=== PATIENT | male | born 1955 | race Caucasian/White ===

== ENCOUNTER 2023-12-28 14:28 | Inpatient (IN) | payer OTHER, MEDICAID, MEDICARE ==
[~2023-12-28] VITALS: Ht 152.4 cm; Wt 79.1 kg
[2023-12-28 15:49] LABS: BASOPHILS % 1.1 % (0.0-2.0); DIFFERENTIAL COMMENT 0; EOSINOPHILS % 0.6 % (0.0-5.0); HEMATOCRIT. 46.1 % (42.0-52.0); HEMOGLOBIN. 15.3 g/dL (14.0-18.0); LYMPHOCYTES % 19.4 % (20.0-50.0); MEAN CORPUSCULAR HEMOGLOBIN 26.6 pg (28.0-32.0); MEAN CORPUSCULAR HGB CONC 33.3 g/dL (31.0-37.0); MEAN PLATELET VOLUME 9.1 fl (7.4-10.4); MONOCYTES % 8.6 % (2.0-8.0); NEUTROPHILS % 70.3 % (40.0-76.0); PLATELET 264 x1000/uL (130-400); RED BLOOD CELL COUNT 5.76 mill/uL (4.7-6.1); RED CELL DISTRIBUTION WIDTH 18.9 % (11.6-14.6); WHITE BLOOD COUNT 14.2 x1000/uL (4.5-11.0)
[2023-12-28 15:54] LABS: CHLORIDE 107 mEq/L (98-107); POTASSIUM 3.6 mEq/L (3.5-5.1); SODIUM 139 mEq/L (136-145)
[2023-12-28 15:55] LABS: CARBON DIOXIDE 22 mEq/L (21-32)
[2023-12-28 15:56] LABS: CALCIUM 9.7 mg/dL (8.7-10.4)
[2023-12-28 16:01] LABS: CREATININE 0.8 mg/dL (0.6-1.3); GLUCOSE 112 mg/dL (70-105); UREA NITROGEN BLOOD 14 mg/dL (9-23)
[2023-12-28 16:08] LABS: TROPONIN I HIGH SENSITIVITY < 4 ng/L (3.0-53)
[2023-12-28 17:43] LABS: TROPONIN I HIGH SENSITIVITY < 4 ng/L (3.0-53)
[2023-12-28 18:46] LABS: PROTHROMBIN TIME 11.3 sec (9.6-11.0)
[2023-12-28] MEDS: MORPHINE SULFATE 2 MG/ML INJ (NOT FOR IM USE) IV ONE (18:51)
[2023-12-28] MEDS: ONDANSETRON HCL 4MG/2ML INJ IV ONE (18:51)
[2023-12-28] MEDS: LEVETIRACETAM 500MG PREMIX 100 ML IV SCH (18:59)
[2023-12-28] MEDS ORDERED: NICARDIPINE 100 MG in SODIUM CHLORIDE 0.9% 60 ML IV PRN (19:00)
[2023-12-28] MEDS: DEXT 5%/LACTATED RINGERS 1,000 ML IV SCH (19:03)
[2023-12-28] MEDS: NICARDIPINE 100 MG in SODIUM CHLORIDE 0.9% 60 ML IV PRN (21:42)
[2023-12-29] VITALS (60 sets, daily range): BP systolic 76–140; BP diastolic 58–100; PULSE 74–104; RESP 12–32; TEMP 97.8; O2SAT 97
[2023-12-29] MEDS: DEXAMETHASONE 4MG/ML 1ML VIAL IV SCH (00:27)
[2023-12-29] MEDS ORDERED: GENTAMICIN SULF 40MG/ML 2ML VIAL ONE ×2 (05:52→12:14)
[2023-12-29] MEDS ORDERED: LIDOCAINE HCL/EPINEPHRINE 1%-EPI 1:100,000 20 ML VIAL ONE ×2 (05:52→12:14)
[2023-12-29] MEDS ORDERED: THROMBIN (BOVINE) 5000 UNITS/VIAL TOP ONE ×3 (05:52→12:13)
[2023-12-29] MEDS ORDERED: CLONIDINE 0.1MG TABLET PO PRN (06:00)
[2023-12-29] MEDS ORDERED: MAGNESIUM/ALUMINUM HYDROXIDE/SIMETHICONE 30ML UDC PO PRN (06:00)
[2023-12-29] MEDS ORDERED: DOCUSATE SODIUM 100MG CAPSULE PO PRN (06:00)
[2023-12-29 07:42] LABS: CHLORIDE 106 mEq/L (98-107); POTASSIUM 3.8 mEq/L (3.5-5.1); SODIUM 138 mEq/L (136-145)
[2023-12-29 07:43] LABS: CALCIUM 9.2 mg/dL (8.7-10.4); CARBON DIOXIDE 25 mEq/L (21-32)
[2023-12-29 07:48] LABS: CREATININE 0.8 mg/dL (0.6-1.3); GLUCOSE 152 mg/dL (70-105); UREA NITROGEN BLOOD 13 mg/dL (9-23)
[2023-12-29 08:25] LABS: BASOPHILS % 0.7 % (0.0-2.0); EOSINOPHILS % 0.2 % (0.0-5.0); HEMOGLOBIN. 15.4 g/dL (14.0-18.0); LYMPHOCYTES % 10.6 % (20.0-50.0); MEAN CORPUSCULAR HEMOGLOBIN 26.2 pg (28.0-32.0); MEAN CORPUSCULAR HGB CONC 32.7 g/dL (31.0-37.0); MEAN CORPUSCULAR VOLUME 80.1 fL (80.0-94.0); MEAN PLATELET VOLUME 9.7 fl (7.4-10.4); MONOCYTES % 1.2 % (2.0-8.0); NEUTROPHILS % 87.3 % (40.0-76.0); PLATELET 279 x1000/uL (130-400); RED BLOOD CELL COUNT 5.86 mill/uL (4.7-6.1); RED CELL DISTRIBUTION WIDTH 18.4 % (11.6-14.6); WHITE BLOOD COUNT 15.3 x1000/uL (4.5-11.0)
[2023-12-29] MEDS: PANTOPRAZOLE SODIUM 40 MG/VIAL IV SCH (09:46)
[2023-12-29] MEDS ORDERED: IPRATROPIUM/ALBUTEROL 0.5-3(2.5)MG/3ML NEB HHN PRN (10:45)
[2023-12-29] MEDS ORDERED: BACITRACIN 14GM TUBE TOP ONE (12:13)
[2023-12-29] MEDS ORDERED: NALOXONE HCL 0.4MG/ML VIAL IV PRN (13:45)
[2023-12-29] MEDS ORDERED: CEFAZOLIN SODIUM 1000MG/VIAL IV SCH (14:00)
[2023-12-29] MEDS ORDERED: ETOMIDATE 2MG/ML 10ML VIAL IV ONE (14:02)
[2023-12-29] MEDS ORDERED: CEFAZOLIN SODIUM 1000MG/VIAL ONE (14:02)
[2023-12-29] MEDS ORDERED: FENTANYL CITRATE/PF 50MCG/ML 2ML VIAL ONE (14:02)
[2023-12-29] MEDS ORDERED: MIDAZOLAM HCL 2 MG/2 ML VIAL ONE (14:03)
[2023-12-29] MEDS ORDERED: ROCURONIUM BROMIDE 10MG/ML VIAL 5ML IV ONE (14:08)
[2023-12-29] MEDS ORDERED: PROPOFOL 200MG/20ML VIAL IV ONE (14:09)
[2023-12-29] MEDS ORDERED: ALBUTEROL 6.7GM HFA INHALER ONE (14:17)
[2023-12-29] MEDS: CEFAZOLIN 1000MG PREMIX 50 ML IV SCH (15:00)
[2023-12-29] MEDS ORDERED: GLYCOPYRROLATE 0.2 MG/ML 2ML VIAL ONE ×2 (15:07)
[2023-12-29] MEDS ORDERED: NEOSTIGMINE METHYLSULFATE 1MG/ML 10 ML VIAL ONE (15:07)
[2023-12-29] MEDS ORDERED: SKIN ADHESIVE 0.7 GM EA TOP ONE (15:09)
[2023-12-29] MEDS: IPRATROPIUM/ALBUTEROL 0.5-3(2.5)MG/3ML NEB HHN PRN (17:57)
[2023-12-29] MEDS: MORPHINE SULFATE 4 MG/ML INJ (FOR IV/IM USE) IV PRN (18:03)
[2023-12-29] MEDS: LEVETIRACETAM 500MG PREMIX 100 ML IV SCH (21:12)
[2023-12-30] VITALS (87 sets, daily range): BP systolic 91–222; BP diastolic 57–176; PULSE 60–107; RESP 12–35; TEMP 96.8–98.1
[2023-12-30 04:41] LABS: BASOPHILS % 0.2 % (0.0-2.0); HEMATOCRIT. 40.7 % (42.0-52.0); HEMOGLOBIN. 13.3 g/dL (14.0-18.0); LYMPHOCYTES % 9.9 % (20.0-50.0); MEAN CORPUSCULAR HEMOGLOBIN 26.3 pg (28.0-32.0); MEAN CORPUSCULAR HGB CONC 32.7 g/dL (31.0-37.0); MEAN CORPUSCULAR VOLUME 80.5 fL (80.0-94.0); MEAN PLATELET VOLUME 9.6 fl (7.4-10.4); MONOCYTES % 4.8 % (2.0-8.0); NEUTROPHILS % 85.1 % (40.0-76.0); PLATELET 257 x1000/uL (130-400); RED BLOOD CELL COUNT 5.06 mill/uL (4.7-6.1); RED CELL DISTRIBUTION WIDTH 18.9 % (11.6-14.6); WHITE BLOOD COUNT 21.5 x1000/uL (4.5-11.0)
[2023-12-30 04:48] LABS: CHLORIDE 109 mEq/L (98-107); POTASSIUM 3.8 mEq/L (3.5-5.1); SODIUM 139 mEq/L (136-145)
[2023-12-30 04:50] LABS: CALCIUM 8.5 mg/dL (8.7-10.4); CARBON DIOXIDE 21 mEq/L (21-32)
[2023-12-30 04:54] LABS: TRIGLYCERIDE 50 mg/dL (0-150)
[2023-12-30 04:55] LABS: CREATININE 0.7 mg/dL (0.6-1.3); GLUCOSE 165 mg/dL (70-105); PROTEIN TOTAL 6.4 g/dL (6.0-8.3); UREA NITROGEN BLOOD 14 mg/dL (9-23)
[2023-12-30 04:56] LABS: ALANINE AMINOTRANSFERASE 13 IU/L (10-49); LDL CHOLESTEROL 61 mg/dL (5-100)
[2023-12-30 04:57] LABS: ALBUMIN 3.7 g/dL (3.2-4.8); ASPARTATE AMINOTRANSFERASE 15 IU/L (<34); BILIRUBIN DIRECT 0.2 mg/dL (<=3.0); CHOLESTEROL 114 mg/dL (<200); HDL CHOLESTEROL 46 mg/dL (>55); PHOSPHORUS 3.4 mg/dL (2.5-4.9); T4 FREE 1.26 ng/dL (0.89-1.76); THYROID STIMULATING HORMONE 0.44 uIU/mL (0.55-4.78)
[2023-12-30 04:58] LABS: BILIRUBIN TOTAL 0.5 mg/dL (0.1-1.0)
[2023-12-30 05:02] LABS: TROPONIN I HIGH SENSITIVITY < 4 ng/L (3.0-53)
[2023-12-30] MEDS: ONDANSETRON HCL 4MG/2ML INJ IV PRN (05:25)
[2023-12-30] MEDS: ACETAMINOPHEN 325MG TABLET PO PRN (23:12)
[2023-12-31] VITALS (62 sets, daily range): BP systolic 100–153; BP diastolic 43–104; PULSE 56–97; RESP 7–26; TEMP 97.8–98.6
[2023-12-31 05:00] LABS: BASOPHILS % 0.1 % (0.0-2.0); HEMATOCRIT. 36.8 % (42.0-52.0); HEMOGLOBIN. 12.3 g/dL (14.0-18.0); LYMPHOCYTES % 7.1 % (20.0-50.0); MEAN CORPUSCULAR HEMOGLOBIN 26.8 pg (28.0-32.0); MEAN CORPUSCULAR HGB CONC 33.4 g/dL (31.0-37.0); MEAN PLATELET VOLUME 9.8 fl (7.4-10.4); MONOCYTES % 5.4 % (2.0-8.0); NEUTROPHILS % 87.4 % (40.0-76.0); PLATELET 218 x1000/uL (130-400); RED CELL DISTRIBUTION WIDTH 18.6 % (11.6-14.6); WHITE BLOOD COUNT 25.9 x1000/uL (4.5-11.0)
[2023-12-31 05:11] LABS: CHLORIDE 106 mEq/L (98-107); SODIUM 137 mEq/L (136-145)
[2023-12-31 05:12] LABS: CALCIUM 8.5 mg/dL (8.7-10.4); CARBON DIOXIDE 24 mEq/L (21-32)
[2023-12-31 05:17] LABS: CREATININE 0.7 mg/dL (0.6-1.3); GLUCOSE 155 mg/dL (70-105); UREA NITROGEN BLOOD 18 mg/dL (9-23)
[2023-12-31 05:19] LABS: ALANINE AMINOTRANSFERASE 11 IU/L (10-49); ALBUMIN 3.5 g/dL (3.2-4.8); ASPARTATE AMINOTRANSFERASE 15 IU/L (<34); BILIRUBIN DIRECT 0.2 mg/dL (<=3.0); BILIRUBIN TOTAL 0.5 mg/dL (0.1-1.0); PHOSPHORUS 2.8 mg/dL (2.5-4.9); PROTEIN TOTAL 6.1 g/dL (6.0-8.3)
[2024-01-01] VITALS (34 sets, daily range): BP systolic 112–143; BP diastolic 67–113; PULSE 53–80; RESP 14–23; TEMP 98–98.6
[2024-01-02 00:29] VITALS: BP 126/75; PULSE 75; RESP 18; TEMP 97.2
[2024-01-02 04:09] VITALS: BP 109/57; PULSE 63; RESP 18; TEMP 97.8
[2024-01-02 08:00] VITALS: BP 143/93; PULSE 65; RESP 20; TEMP 97.5
[2024-01-02 12:00] VITALS: BP 115/68; PULSE 65; RESP 18; TEMP 97.7
[2024-01-02 16:00] VITALS: BP 108/68; PULSE 70; RESP 18; TEMP 97.8
[2024-01-02 19:56] VITALS: BP 114/63; PULSE 79; RESP 20; TEMP 97.5
[2024-01-03] VITALS: BP 111/72; PULSE 76; RESP 20; TEMP 97.2
[2024-01-03 04:00] VITALS: BP 127/73; PULSE 82; RESP 20; TEMP 98.1
[2024-01-03 08:00] VITALS: BP 125/71; PULSE 79; RESP 18; TEMP 98.4
[2024-01-03] MEDS: FAMOTIDINE 20MG/2ML VIAL IV SCH (08:36)
[2024-01-03] MEDS ORDERED: HYDROCODONE/ACETAMINOPHEN 5/325MG TABLET PO PRN (10:30)
[2024-01-03 12:00] VITALS: BP 121/67; PULSE 79; RESP 18; TEMP 97.9
[2024-01-03 12:41] LABS: CHLORIDE 103 mEq/L (98-107); POTASSIUM 3.4 mEq/L (3.5-5.1); SODIUM 133 mEq/L (136-145)
[2024-01-03 12:42] LABS: CALCIUM 8.4 mg/dL (8.7-10.4); CARBON DIOXIDE 23 mEq/L (21-32)
[2024-01-03 12:47] LABS: CREATININE 0.6 mg/dL (0.6-1.3); GLUCOSE 191 mg/dL (70-105); UREA NITROGEN BLOOD 13 mg/dL (9-23)
[2024-01-03 12:53] LABS: BASOPHILS % 0.3 % (0.0-2.0); HEMATOCRIT. 45.6 % (42.0-52.0); LYMPHOCYTES % 29.2 % (20.0-50.0); MEAN CORPUSCULAR HEMOGLOBIN 26.4 pg (28.0-32.0); MEAN CORPUSCULAR HGB CONC 32.8 g/dL (31.0-37.0); MEAN CORPUSCULAR VOLUME 80.4 fL (80.0-94.0); MEAN PLATELET VOLUME 9.6 fl (7.4-10.4); MONOCYTES % 9.5 % (2.0-8.0); PLATELET 235 x1000/uL (130-400); RED BLOOD CELL COUNT 5.67 mill/uL (4.7-6.1); RED CELL DISTRIBUTION WIDTH 18.8 % (11.6-14.6); WHITE BLOOD COUNT 15.6 x1000/uL (4.5-11.0)
[2024-01-03 13:26] LABS: DIFFERENTIAL COMMENT 1
[2024-01-03 14:25] VITALS: BP 126/71; PULSE 89; TEMP 98.1; O2SAT 99
[2024-01-04] MEDS ORDERED: LEVETIRACETAM 500MG TABLET PO SCH (09:00)
[2024-01-04] MEDS ORDERED: FAMOTIDINE 20MG TABLET PO SCH (09:00)
[2024-02-14] MEDS ORDERED: DILT30TA37 PO (13:18)
[2024-02-14] MEDS ORDERED: DOCU-150 PO (13:18)
== END 2024-01-03 15:50 | disposition home or self-care (01) | DRG 25 ==
LOC: ER 14:28 → MICUSO 19:58 → 8WST 01-01 11:56
PROVIDERS: ADMIT Internal Medicine; ATTEND Internal Medicine
PROC: 00C40ZZ Extirpation of Matter from Intracranial Subdural Space, Open Approach (ICD-10-PCS; principal; 2023-12-29)
PROC: 00H032Z Insertion of Monitoring Device into Brain, Percutaneous Approach (ICD-10-PCS; 2023-12-29)
PROC: 4A103BD Monitoring of Intracranial Pressure, Percutaneous Approach (ICD-10-PCS; 2023-12-29)
DX: I62.01 Nontraumatic acute subdural hemorrhage (principal); G93.41 Metabolic encephalopathy; E11.9 Type 2 diabetes mellitus without complications; I10 Essential (primary) hypertension; D72.829 Elevated white blood cell count, unspecified
CPT/HCPCS: 36415; 71045; 80048; 80061; 80076; 82962; 83735; 83880; 84100; 84145; 84439; 84443; 84484; 85025; 86705; 86850; 86900; 87070; 87075; 93005; 93306; 93970; 94640; 97116; 97162; 97166; 97530; 99291; C1893; C9113; J0690; J1100; J1580; J1953; J2250; J2270; J2405; J2704; J2710; J3010; J3490; J7050; J7120; C1713

== ENCOUNTER 2024-04-12 11:38 | Emergency (ER) | payer OTHER, MEDICAID ==
[~2024-04-12] VITALS: Ht 167.6 cm; Wt 79.0 kg
[~2024-04-12 11:38] MED LIST: DILT30TA37 PO; DOCU-150 PO
[2024-04-12 11:56] VITALS: O2SAT 100
[2024-04-12 13:02] LABS: BASOPHILS % 0.7 % (0.0-2.0); DIFFERENTIAL COMMENT 0; EOSINOPHILS % 1.5 % (0.0-5.0); HEMATOCRIT. 45.4 % (42.0-52.0); HEMOGLOBIN. 14.6 g/dL (14.0-18.0); LYMPHOCYTES % 33.8 % (20.0-50.0); MEAN CORPUSCULAR HEMOGLOBIN 25.1 pg (28.0-32.0); MEAN CORPUSCULAR HGB CONC 32.1 g/dL (31.0-37.0); MEAN CORPUSCULAR VOLUME 78.2 fL (80.0-94.0); MEAN PLATELET VOLUME 8.6 fl (7.4-10.4); MONOCYTES % 9.7 % (2.0-8.0); NEUTROPHILS % 54.3 % (40.0-76.0); PLATELET 232 x1000/uL (130-400); RED BLOOD CELL COUNT 5.81 mill/uL (4.7-6.1); RED CELL DISTRIBUTION WIDTH 18.4 % (11.6-14.6); WHITE BLOOD COUNT 14.4 x1000/uL (4.5-11.0)
[2024-04-12 13:07] LABS: CHLORIDE 106 mEq/L (98-107); POTASSIUM 3.6 mEq/L (3.5-5.1); SODIUM 138 mEq/L (136-145)
[2024-04-12 13:08] LABS: CALCIUM 9.8 mg/dL (8.7-10.4); CARBON DIOXIDE 23 mEq/L (21-32)
[2024-04-12 13:13] LABS: GLUCOSE 154 mg/dL (70-105); UREA NITROGEN BLOOD 13 mg/dL (9-23)
[2024-04-12] MEDS: ACETAMINOPHEN 650MG/20.3ML UDC PO ONE (13:27)
[2024-04-12] MEDS: LIDOCAINE 5% PATCH TOP SCH (13:27)
[2024-04-12] MEDS: KETOROLAC 15MG/ML VIAL IV ONE (13:41)
[2024-04-12] MEDS: SODIUM CHLORIDE 0.9% 1,000 ML IV ONE (13:41)
[2024-04-12] MEDS: MORPHINE SULFATE 4 MG/ML INJ (FOR IV/IM USE) IV ONE (15:41)
[2024-04-12 16:37] LABS: CLARITY URINE CLEAR (CLEAR); COLOR URINE DARK YELLOW (YELLOW); GLUCOSE URINE NEGATIVE (NEGATIVE); KETONES URINE TRACE (NEGATIVE); LEUKOCYTE ESTERASE URINE TRACE (NEGATIVE); NITRITE URINE NEGATIVE (NEGATIVE); OCCULT BLOOD URINE NEGATIVE (NEGATIVE); PROTEIN URINE 1+ (NEGATIVE); SPECIFIC GRAVITY URINE 1.039 (1.005-1.030)
[2024-04-12 17:05] LABS: BACTERIA URINE 1+; CALCIUM OXALATE CRYSTALS URINE 1+ /lpf; RBC URINE NONE SEEN /hpf (0-2); SQUAMOUS EPITHELIAL CELL URINE FEW /lpf (RARE/1+)
[2024-04-12 17:15] VITALS: BP 130/70; PULSE 63; RESP 18; TEMP 36.66960; O2SAT 98
[2024-04-12 19:20] LABS: ALANINE AMINOTRANSFERASE 31 IU/L (10-49); ALBUMIN 4.8 g/dL (3.2-4.8); ASPARTATE AMINOTRANSFERASE 26 IU/L (<34)
[2024-04-12 19:21] LABS: BILIRUBIN DIRECT 0.2 mg/dL (<=3.0); BILIRUBIN TOTAL 0.6 mg/dL (0.1-1.0); PROTEIN TOTAL 7.4 g/dL (6.0-8.3)
== END 2024-04-12 17:35 | disposition home or self-care (01) ==
LOC: ER 11:38
DX: M54.9 Dorsalgia, unspecified (principal); E11.9 Type 2 diabetes mellitus without complications; I10 Essential (primary) hypertension; Z90.49 Acquired absence of other specified parts of digestive tract; Z98.890 Other specified postprocedural states; Z88.5 Allergy status to narcotic agent
CPT/HCPCS: 99285; 74176; 96374; 96361; 96375; 80076; 80048; 81003; 85025; 36415; J1885; J2270; J7030

== ENCOUNTER 2025-06-20 10:21 | Inpatient (IN) | payer OTHER ==
[~2025-06-20] VITALS: Ht 170.2 cm; Wt 85.3 kg
[~2025-06-20 10:21] MED LIST changes: -DOCU-150 PO; +DOCU-422 PO
[2025-06-20 10:31] VITALS: O2SAT 100
[2025-06-20 11:20] LABS: BASOPHILS % 0.8 % (0.0-2.0); EOSINOPHILS % 0.3 % (0.0-5.0); HEMATOCRIT. 48.6 % (42.0-52.0); HEMOGLOBIN. 16.0 g/dL (14.0-18.0); LYMPHOCYTES % 31.3 % (20.0-50.0); MEAN PLATELET VOLUME 9.1 fl (7.4-10.4); MONOCYTES % 5.9 % (2.0-8.0); NEUTROPHILS % 61.7 % (40.0-76.0); PLATELET 282 x1000/uL (130-400); RED BLOOD CELL COUNT 6.10 mill/uL (4.7-6.1); RED CELL DISTRIBUTION WIDTH 18.8 % (11.6-14.6)
[2025-06-20 11:27] LABS: CREATININE 0.8 mg/dL (0.6-1.3); UREA NITROGEN BLOOD 8 mg/dL (9-23)
[2025-06-20 11:29] LABS: ASPARTATE AMINOTRANSFERASE 37 IU/L (<34); BILIRUBIN DIRECT 0.2 mg/dL (<=3.0); BILIRUBIN TOTAL 0.8 mg/dL (0.1-1.0); PROTEIN TOTAL 7.5 g/dL (6.0-8.3)
[2025-06-20 11:38] LABS: CLARITY URINE CLEAR (CLEAR); COLOR URINE DARK YELLOW (YELLOW); GLUCOSE URINE NEGATIVE (NEGATIVE); KETONES URINE TRACE (NEGATIVE); LEUKOCYTE ESTERASE URINE 1+ (NEGATIVE); NITRITE URINE NEGATIVE (NEGATIVE); OCCULT BLOOD URINE NEGATIVE (NEGATIVE); PH URINE 5.5 (4.5-8.0); PROTEIN URINE 2+ (NEGATIVE); SPECIFIC GRAVITY URINE 1.024 (1.005-1.030); UROBILINOGEN URINE 1.0 E.U./dL (0.2-1.0)
[2025-06-20 11:49] LABS: INR 1.0
[2025-06-20 11:56] LABS: MUCUS URINE 3+ /lpf (NONE/TRACE); SQUAMOUS EPITHELIAL CELL URINE 2+ /lpf (RARE/1+)
[2025-06-20 11:58] LABS: BACTERIA URINE TRACE; RBC URINE 0-2 /hpf (0-2)
[2025-06-20] MEDS: ONDANSETRON HCL 4MG/2ML INJ IV ONE (12:22)
[2025-06-20] MEDS: MORPHINE SULFATE 4 MG/ML INJ (FOR IV/IM USE) IV ONE (12:23)
[2025-06-20] MEDS: ONDANSETRON HCL 4MG/2ML INJ IV SCH (15:42)
[2025-06-20] MEDS: MORPHINE SULFATE 2 MG/ML INJ (NOT FOR IM USE) IV SCH (15:42)
[2025-06-20] MEDS ORDERED: IPRATROPIUM/ALBUTEROL 0.5-3(2.5)MG/3ML NEB HHN PRN (16:45)
[2025-06-20] MEDS ORDERED: CLONIDINE 0.1MG TABLET PO PRN (16:45)
[2025-06-20] MEDS ORDERED: CEFTRIAXONE 1GM/50ML 50 ML IV NR (16:45)
[2025-06-20] MEDS ORDERED: NALOXONE HCL 0.4MG/ML VIAL IV PRN (17:00)
[2025-06-20] MEDS ORDERED: CEFTRIAXONE 1GM/50ML 50 ML IV SCH (18:00)
[2025-06-20] MEDS: MORPHINE SULFATE 2 MG/ML INJ (NOT FOR IM USE) IV PRN (19:43)
[2025-06-20 19:50] VITALS: BP 162/87; PULSE 67; RESP 18; TEMP 36.3068
[2025-06-20 20:00] VITALS: BP 162/87; PULSE 69; RESP 18; TEMP 36.3; O2SAT 95
[2025-06-21] VITALS: BP 121/69; PULSE 62; RESP 20; TEMP 36.3; O2SAT 95
[2025-06-21] MEDS: MORPHINE SULFATE 4 MG/ML INJ (FOR IV/IM USE) IV PRN (00:20)
[2025-06-21] MEDS: CEFTRIAXONE 1GM/50ML 50 ML IV NR (00:38)
[2025-06-21 02:24] LABS: TROPONIN I HIGH SENSITIVITY 4 ng/L (3.0-53)
[2025-06-21 02:25] LABS: CREATINE KINASE MB FRACTION 1.0 ng/mL (0.5-3.6)
[2025-06-21 04:00] VITALS: BP 162/96; PULSE 77; RESP 20; TEMP 36.6; O2SAT 93
[2025-06-21 07:53] VITALS: BP 144/90; PULSE 64; RESP 18; TEMP 36.7; O2SAT 98
[2025-06-21 08:08] LABS: BASOPHILS % 0.6 % (0.0-2.0); EOSINOPHILS % 1.6 % (0.0-5.0); HEMATOCRIT. 47.3 % (42.0-52.0); HEMOGLOBIN. 15.2 g/dL (14.0-18.0); LYMPHOCYTES % 36.2 % (20.0-50.0); MEAN PLATELET VOLUME 9.4 fl (7.4-10.4); MONOCYTES % 8.6 % (2.0-8.0); NEUTROPHILS % 53.0 % (40.0-76.0); PLATELET 269 x1000/uL (130-400); RED BLOOD CELL COUNT 5.87 mill/uL (4.7-6.1); RED CELL DISTRIBUTION WIDTH 18.5 % (11.6-14.6)
[2025-06-21 08:19] LABS: CREATINE KINASE MB FRACTION 0.5 ng/mL (0.5-3.6)
[2025-06-21 09:39] LABS: TROPONIN I HIGH SENSITIVITY 4 ng/L (3.0-53)
[2025-06-21 10:00] LABS: CREATININE 0.8 mg/dL (0.6-1.3); UREA NITROGEN BLOOD 11 mg/dL (9-23)
[2025-06-21 11:38] VITALS: BP 146/82; PULSE 62; RESP 18; TEMP 36.4; O2SAT 98
[2025-06-21 13:35] VITALS: BP 146/82; PULSE 62; RESP 18; TEMP 97.4
[2025-06-21] MEDS ORDERED: CIPR-263 MT (15:59)
[2025-06-21 16:28] VITALS: BP 118/72; PULSE 68; RESP 18; TEMP 36.7; O2SAT 100
== END 2025-06-21 17:58 | disposition home or self-care (01) | DRG 376 ==
LOC: ER 10:21 → EDBEDREQ 11:26 → 8WST 13:02 → EDBEDREQ 13:05 → EDBEDREQTM 13:05 → ENRESERV 17:19 → 8WST 20:57
PROVIDERS: ADMIT Internal Medicine; ATTEND Internal Medicine
DX: C76.2 Malignant neoplasm of abdomen (principal); E11.9 Type 2 diabetes mellitus without complications; I10 Essential (primary) hypertension; L50.9 Urticaria, unspecified; R19.00 Intra-abdominal and pelvic swelling, mass and lump, unspecified site; Z85.038 Personal history of other malignant neoplasm of large intestine; Z85.05 Personal history of malignant neoplasm of liver; Z85.47 Personal history of malignant neoplasm of testis; Z88.5 Allergy status to narcotic agent; Z86.73 Personal history of transient ischemic attack (TIA), and cerebral infarction without residual deficits; Z90.49 Acquired absence of other specified parts of digestive tract; Z90.81 Acquired absence of spleen
CPT/HCPCS: 36415; 74176; 80048; 80076; 81003; 82550; 82553; 84484; 85025; 96374; 96375; 96376; 99285; A4606; J0696; J2270; J2405